=== PATIENT | female | born 1935 | race Caucasian/White ===

== ENCOUNTER → 2016-05-21 | Outpatient (CLI) | payer OTHER, MEDICARE ==
[~2016-05-21] MED LIST: CARB50TA3 PO; CHOL200010 PO; DONE10TA12 PO; GLIP5TAB3 PO; INSDGIPEN SC; KFL500 PO; LAMO150T PO; OLAN1TAB13 PO; SERT-234 PO; SIMV40TA2 PO; TRIH2TAB2 PO
[2016-05-21 12:33] LABS: URINE APPEARANCE TURBID (CLEAR); URINE BILIRUBIN NEG (NEG); URINE COLOR YELLOW; URINE EPITHELIAL CELL AUTO 20-30 /lpf (0-5); URINE NITRITE NEG (NEG); URINE PH 7.5 (4.5-7.5); URINE SPECIFIC GRAVITY 1.007 (1.000-1.030); UROBILINOGEN NEG (NEG)
[2016-05-21 12:55] LABS: MANUAL MICROSCOPIC REQUIRED? NO; REVIEW REQ? NO
== END | disposition home or self-care (01) ==
LOC: C.LABBFT 10:26
PROVIDERS: ATTEND Internal Medicine
DX: R39.9 Unspecified symptoms and signs involving the genitourinary system (principal)

== ENCOUNTER → 2016-09-09 | Outpatient (CLI) | payer OTHER, MEDICARE ==
[~2016-09-09] MED LIST changes: -LAMO150T PO; +LAMO150T32 PO
[2016-09-09 12:10] LABS: BASO % 0.2 %; BASO ABS # 0.01 K/uL (0-0.2); COMPLETE YES; EOS % 1.8 %; HEMATOCRIT 37.9 % (37-47); IG% 0.5 %; LYMPH % 23.1 %; LYMPH ABS # 1.31 K/uL (1.2-3.4); MEAN CELL VOLUME 92.9 fL (80-100); MEAN CORPUSCULAR HEMOGLOBIN 31.9 pg (25-34); MEAN CORPUSCULAR HGB CONC 34.3 g/dl (32-36); MEAN PLATELET VOLUME 8.6 fL (7.4-10.4); MONO % 6.5 %; NEUT % 67.9 %; PLATELET COUNT 122 K/uL (130-400); RED BLOOD COUNT 4.08 M/uL (4.2-5.4); WHITE BLOOD COUNT 5.66 K/uL (4.8-10.8)
[2016-09-09 12:47] LABS: ESTIMATED AVERAGE GLUCOSE 151 mg/dl; HA1C FLAG Normal (Normal)
[2016-09-09 12:51] LABS: BLOOD UREA NITROGEN 29 mg/dl (7-18); BUN/CREATININE RATIO 18.2 (10-20); CALCIUM 9.9 mg/dl (8.5-10.1); CARBON DIOXIDE 22 mmol/L (21-32); CHLORIDE 110 mmol/L (98-107); GLUCOSE 146 mg/dl (70-99); POTASSIUM 4.2 mmol/L (3.5-5.1); SODIUM 142 mmol/L (136-145)
[2016-09-09 12:52] LABS: PHOSPHORUS 3.4 mg/dl (2.5-4.9)
== END | disposition home or self-care (01) ==
LOC: C.LABBFT 08:15
PROVIDERS: ATTEND Internal Medicine
DX: E11.65 Type 2 diabetes mellitus with hyperglycemia (principal); E11.22 Type 2 diabetes mellitus with diabetic chronic kidney disease; N18.3 Chronic kidney disease, stage 3 (moderate); D69.6 Thrombocytopenia, unspecified

== ENCOUNTER 2016-11-19 11:26 | Inpatient (IN) | payer OTHER, MEDICARE ==
[~2016-11-19] VITALS: Ht 167.6 cm; Wt 74.1 kg
[2016-11-19] MEDS ORDERED: CARB50TA3 PO (12:09)
[2016-11-19] MEDS ORDERED: GLIP5TAB3 PO (12:09)
[2016-11-19] MEDS ORDERED: CHOL200010 PO (12:09)
[2016-11-19] MEDS ORDERED: TRIH2TAB2 PO (12:09)
[2016-11-19] MEDS ORDERED: SERT-234 PO (12:09)
[2016-11-19] MEDS ORDERED: LAMO150T32 PO (12:09)
[2016-11-19] MEDS ORDERED: DONE10TA12 PO (12:09)
[2016-11-19] MEDS ORDERED: OLAN1TAB13 PO (12:09)
[2016-11-19] MEDS ORDERED: INSDGIPEN SC (12:09)
[2016-11-19] MEDS ORDERED: SIMV40TA2 PO (12:09)
[2016-11-19 12:24] LABS: HEMATOCRIT 35.1 % (37-47); MEAN CELL VOLUME 91.2 fL (80-100); MEAN CORPUSCULAR HEMOGLOBIN 30.6 pg (25-34); MEAN CORPUSCULAR HGB CONC 33.6 g/dl (32-36); RED BLOOD COUNT 3.85 M/uL (4.2-5.4); WHITE BLOOD COUNT 7.57 K/uL (4.8-10.8)
--- NOTE | 2016-11-19 12:36 | DIAGNOSTIC IMAGING REPORT ---
SINGLE VIEW CHEST CLINICAL HISTORY: Hyperglycemia. FINDINGS: An AP, portable, upright chest radiograph is obtained. No prior studies are available for comparison at the time of dictation. The examination is degraded by portable technique and apical lordotic positioning. The cardiomediastinal silhouette is unremarkable. There is atherosclerotic calcification of the thoracic aorta. Nonspecific interstitial thickening is noted. There is no airspace consolidation or large pleural effusion. No pneumothorax is seen. The skeletal structures are osteopenic. The bony thorax is grossly intact. Degenerative change is seen throughout the thoracic spine. IMPRESSION: No acute cardiopulmonary abnormality. Electronically signed by: Desmond Seals M.D. 11/19/2016 12:34 PM Dictated Date/Time: 11/19/2016 12:33 PM
[2016-11-19 12:44] LABS: BUN/CREATININE RATIO 20.9 (10-20); CALCIUM 9.4 mg/dl (8.5-10.1); POTASSIUM 4.6 mmol/L (3.5-5.1)
[2016-11-19 12:53] LABS: BASO % 0.1 %; BASO ABS # 0.01 K/uL (0-0.2); COMPLETE YES; EOS % 0.1 %; IG% 0.3 %; LYMPH % 3.7 %; LYMPH ABS # 0.28 K/uL (1.2-3.4); MEAN PLATELET VOLUME 7.9 fL (7.4-10.4); MONO % 1.7 %; NEUT % 94.1 %; PLATELET COUNT 88 K/uL (130-400); PLT ESTIMATE DECREASED
[2016-11-19 12:57] LABS: ALB/GLOB RATIO 1.2 (0.9-2); CREATININE 1.8 mg/dl (0.60-1.20)
[2016-11-19 12:57] LABS: URINE APPEARANCE CLOUDY (CLEAR); URINE BILIRUBIN NEG (NEG); URINE COLOR YELLOW; URINE EPITHELIAL CELL AUTO 0-5 /lpf (0-5); URINE NITRITE POS (NEG); URINE SPECIFIC GRAVITY 1.019 (1.000-1.030); UROBILINOGEN NEG (NEG); ZZURINE CULT IF INDIC CATH YES
[2016-11-19 12:58] LABS: BETA-HYDROXYBUTYRATE 1.47 mg/dL (0.2-2.81)
[2016-11-19 13:06] LABS: MANUAL MICROSCOPIC REQUIRED? NO; REVIEW REQ? NO
[2016-11-19] MEDS ORDERED: NovoLIN-R INSULIN PER UNIT CHARGE IV STA (13:10)
[2016-11-19] MEDS ORDERED: IMIPENEM/CILASTATIN IV 500 MG in DEXTROSE 5% 100ML 100 ML IV STA (13:10)
[2016-11-19] MEDS ORDERED: SODIUM CHLORIDE 0.9% 500ML 500 ML IV STA (13:10)
[2016-11-19] MEDS ORDERED: ACETAMINOPHEN 325 MG TAB PO STA (13:40)
[2016-11-19] MEDS ORDERED: ACETAMINOPHEN 325 MG TAB PO PRN (14:15)
[2016-11-19] MEDS ORDERED: GLUCOSE 10 TABS/TUBE PO PRN (14:15)
[2016-11-19] MEDS ORDERED: DEXTROSE 50% 50 ML SYR IV PRN (14:15)
[2016-11-19] MEDS ORDERED: ALUMINUM/MAGNESIUM/SIMETH (MAALOX MAX) 30 ML UDC PO PRN (14:15)
[2016-11-19] MEDS ORDERED: GLUCOSE 40% GEL 15 GM TUBE PO PRN (14:15)
[2016-11-19] MEDS ORDERED: POLYETHYLENE (MIRALAX) 17 GM PACK PO PRN (14:15)
[2016-11-19] MEDS ORDERED: MAGNESIUM HYDROXIDE SUSP 30 ML UDC PO PRN (14:15)
[2016-11-19] MEDS ORDERED: GLUCAGON FOR INJ 1 MG VIAL SQ PRN (14:15)
[2016-11-19] MEDS ORDERED: ONDANSETRON INJ 2 MG/ML 2 ML VIAL IV PRN (14:15)
[2016-11-19 14:34] VITALS: O2SAT 96; BMI 25.6
[2016-11-19] MEDS ORDERED: IBUPROFEN 200 MG TAB PO STA (14:43)
[2016-11-19] MEDS ORDERED: IBUPROFEN 200 MG TAB ONE (14:52)
--- NOTE | 2016-11-19 14:56 | History and Physical ---
History & Physical Date & Time of Service: Nov 19, 2016 at 14:26 Chief Complaint: Sugar 598 Primary Care Physician: Gordo Mckoy M.D. History of Present Illness Source: patient, family ( and daugther at bedside), clinic records, hospital records This is an 81 y/o female with a history of Parkinson's disease, DM II, CKD stage III, HTN, HLD, bipolar disorder, dementia, thrombocytopenia with splenomegaly and GERD who presented to the ED on 11/19 with hyperglycemia, shaking , confusion and weakness. Patient states that she woke up around 3:00 this morning feeling very shaky. She states that she is usually somewhat shaky from the Parkinson's disease but this was more severe than normal. Her checked her blood sugar which was elevated at 318. The patient also noted feeling weaker than normal and was not able to get out of bed and walk around like she normally does. Her and daughter state that she was more confused this morning than normal. Her blood sugar was rechecked again around 10:30 this morning and was elevated at 592. The patient then came to the ED for further evaluation. The patient complains of dizziness in addition to her shakiness. She also notes some shortness of breath. The patient states that she's had some burning with urination for the last few days. Her notes that she has been having increased weakness of the last 2 weeks, and that her sugars have been higher for the last month or so, typically reading in the low 200s. The patient denies sweats, changes in vision, chest pain, palpitations, claudication, cough, wheezing, nausea, vomiting, abdominal pain, hematuria, urinary retention, paralysis, numbness and tingling. Past Medical/Surgical History Medical Problems: (1) Diabetes mellitus type 2 Status: Chronic (2) Parkinson disease Status: Chronic CKD stage III HTN HLD Bipolar disorder Dementia Thrombocytopenia w/splenomegaly GERD Family History Heart disease Hypertension Myocardial infarction Social History Smoking Status: Never Smoker Smokeless Tobacco Use: No Alcohol Use: none Drug Use: none Marital Status: Housing status: lives with significant other Occupational Status: retired Immunizations History of Influenza Vaccine: Yes Influenza Vaccine Date: Apr 02, 2005 History of Tetanus Vaccine?: PT STATES LAST TETANUS OVER 10 YRS AGO History of Pneumococcal: No History of Hepatitis B Vaccine: No Multi-Drug Resistant Organisms History of MDRO: No Allergies Coded Allergies: No Known Allergies (Verified , 11/19/16) Home Medications Scheduled Carbidopa/Levodopa (Sinemet Cr 50MG/200MG), 1 TAB PO TIDM Cephalexin Monohydrate (Cephalexin), 500 MG PO BID Cholecalciferol (Vitamin D), 2,000 UNITS PO DAILY Donepezil Hydrochloride (Aricept), 10 MG PO DAILY Glipizide (Glucotrol), 2.5 MG PO BID Insulin Glargine (Lantus Solostar), 0 SC UD Lamotrigine (Lamictal), 300 MG PO DAILY Olanzapine (Zyprexa), 1 TAB PO HS Sertraline (Zoloft), 150 MG PO HS Simvastatin (Zocor), 40 MG PO QPM Trihexyphenidyl Hcl (Artane), 2 MG PO TIDM Review of Systems Constitutional: + fever, + chills, + weakness, + fatigue, No sweats Eyes: No worsening of vision, No eye pain, No diplopia ENT: No hearing loss, No sore throat, No trouble swallowing Respiratory: + shortness of breath, No cough, No wheezing Cardiovascular: No chest pain, No claudication, No palpitations Abdomen: No pain, No nausea, No vomiting Musculoskeletal: No joint pain, No muscle pain, No calf pain Genitourinary - Female: + dysuria, No urinary retention, No hematuria Neurologic: + problem reported (dizziness, confusion), No paralysis, No weakness, No numbness/tingling Integumentary: No rash, No itch, No color change Physical Exam Vital Signs Date Time Temp Pulse Resp B/P (MAP) Pulse Ox O2 Delivery O2 Flow Rate FiO2 11/19/16 13:28 37.6 88 24 119/71 96 Room Air 11/19/16 12:43 87 20 142/89 95 Room Air 11/19/16 12:05 96 Room Air 11/19/16 12:05 77 11/19/16 11:37 38.0 83 18 107/61 92 Room Air General appearance: Well-developed, well-nourished, no apparent distress Head: Normocephalic, atraumatic Eyes: Normal inspection, PERRL, EOMI ENT: Normal ENT inspection, hearing grossly normal, pharynx normal Neck: Supple, no JVD, trachea midline Respiratory/Chest: Lungs clear to auscultation, normal breath sounds, no respiratory distress Cardiovascular: Regular rate & rhythm, no gallop, no murmur Abdomen/GI: +Suprapubic area TTP. Normal bowel sounds, soft Extremities/Musculoskeletal: Normal inspection, no calf tenderness, no pedal edema Neurological/Psych: Alert, normal mood/affect, oriented x 3 Skin: Normal color, warm/dry, no rash Diagnostics Laboratory Results Results Past 24 Hours Test 11/19/16 12:09 11/19/16 12:40 11/19/16 13:48 11/19/16 14:02 Range/Units White Blood Count 7.57 4.8-10.8 K/uL Red Blood Count 3.85 4.2-5.4 M/uL Hemoglobin 11.8 12.0-16.0 g/dL Hematocrit 35.1 37-47 % Mean Corpuscular Volume 91.2 80-100 fL Mean Corpuscular Hemoglobin 30.6 25-34 pg Mean Corpuscular Hemoglobin Concent 33.6 32-36 g/dl Platelet Count 88 130-400 K/uL Mean Platelet Volume 7.9 7.4-10.4 fL Neutrophils (%) (Auto) 94.1 % Lymphocytes (%) (Auto) 3.7 % Monocytes (%) (Auto) 1.7 % Eosinophils (%) (Auto) 0.1 % Basophils (%) (Auto) 0.1 % Neutrophils # (Auto) 7.12 1.4-6.5 K/uL Lymphocytes # (Auto) 0.28 1.2-3.4 K/uL Monocytes # (Auto) 0.13 0.11-0.59 K/uL Eosinophils # (Auto) 0.01 0-0.5 K/uL Basophils # (Auto) 0.01 0-0.2 K/uL RDW Standard Deviation 47.8 36.4-46.3 fL RDW Coefficient of Variation 14.4 11.5-14.5 % Immature Granulocyte % (Auto) 0.3 % Immature Granulocyte # (Auto) 0.02 0.00-0.02 K/uL Platelet Estimate DECREASED Sodium Level 134 136-145 mmol/L Potassium Level 4.6 3.5-5.1 mmol/L Chloride Level 104 98-107 mmol/L Carbon Dioxide Level 23 21-32 mmol/L Anion Gap 7.0 3-11 mmol/L Blood Urea Nitrogen 38 7-18 mg/dl Creatinine 1.80 0.60-1.20 mg/dl Est Creatinine Clear Calc Drug Dose 24.1 ml/min Estimated GFR () 29.6 Estimated GFR (Non- 25.6 BUN/Creatinine Ratio 20.9 10-20 Random Glucose 415 70-99 mg/dl Calcium Level 9.4 8.5-10.1 mg/dl Total Bilirubin 0.8 0.2-1 mg/dl Aspartate Amino Transf (AST/SGOT) 26 15-37 U/L Alanine Aminotransferase (ALT/SGPT) 41 12-78 U/L Alkaline Phosphatase 56 45-117 U/L Total Protein 7.0 6.4-8.2 gm/dl Albumin 3.8 3.4-5.0 gm/dl Globulin 3.2 2.5-4.0 gm/dl Albumin/Globulin Ratio 1.2 0.9-2 Beta-Hydroxybutyric Acid 1.47 0.2-2.81 mg/dL Urine Color YELLOW Urine Appearance CLOUDY CLEAR Urine pH 5.0 4.5-7.5 Urine Specific [place] 1.019 1.000-1.030 Urine Protein 1+ NEG Urine Glucose (UA) 3+ NEG Urine Ketones NEG NEG Urine Occult Blood 2+ NEG Urine Nitrite POS NEG Urine Bilirubin NEG NEG Urine Urobilinogen NEG NEG Urine Leukocyte Esterase MODERATE NEG Urine WBC (Auto) >30 0-5 /hpf Urine RBC (Auto) 0-4 0-4 /hpf Urine Hyaline Casts (Auto) 1-5 0-5 /lpf Urine Epithelial Cells (Auto) 0-5 0-5 /lpf Urine Bacteria (Auto) 4+ NEG Bedside Lactic Acid Venous 3.31 0.90-1.70 mmol/L Bedside Glucose 287 70-90 mg/dl Microbiology Results 11/19/16 Blood Culture, Received Pending 11/19/16 Blood Culture, Received Pending 11/19/16 Urine Culture, Received Pending Diagnostic Radiology Reviewed the following studies and agree with interpretation as follows: Patient Name: EDITH CRISTINA Unit Number: [id number] Dictated: 11/19/16 1233 Transcribed: 11/19/16 1233 EV Printed Date/Time: [~ rep prt dt]/[~ rep prt tm] [~ rep ct labl] - [~ rep ct ivnm] [facility] [place] [address] Dictated: 11/19/16 1233 Transcribed: 11/19/16 1233 EV Printed Date/Time: [~ rep prt dt]/[~ rep prt tm] [~ rep ct labl] - [~ rep ct ivnm] Patient: EDITH CRISTINA Address1: [address] Rec: [id number] Address2: Acct ID: [id number] [facility] Zip: [place] [address] Date: 1935 Sex: F Room/Bed: Ref Phy: Gordo Mckoy M.D. SC: ROYA Att Phy: Report #: [id number] Calista Phy: Gordo Mckoy M.D. Test: CXR1P Admit Phy: Insole Tack Puller Hand: GORAN Interpreting Phy: Desmond Seals M.D. Diagnosis: SUGAR 598 Ordering Phy: ED, PROTOCOL Service Date: 11/19/16 Admit Date: 11/19/16 MNE: [id number] CONF: DICTATED BY: Desmond Seals M.D.]] CC: ED,PROTOCOL Gordo Mckoy M.D. No Doctor, Assigned Endcc: [~ rep ct add3]] SINGLE VIEW CHEST CLINICAL HISTORY: Hyperglycemia. FINDINGS: An AP, portable, upright chest radiograph is obtained. No prior studies are available for comparison at the time of dictation. The examination is degraded by portable technique and apical lordotic positioning. The cardiomediastinal silhouette is unremarkable. There is atherosclerotic calcification of the thoracic aorta. Nonspecific interstitial thickening is noted. There is no airspace consolidation or large pleural effusion. No pneumothorax is seen. The skeletal structures are osteopenic. The bony thorax is grossly intact. Degenerative change is seen throughout the thoracic spine. IMPRESSION: No acute cardiopulmonary abnormality. Electronically signed by: Desmond Seals M.D. 11/19/2016 12:34 PM Dictated Date/Time: 11/19/2016 12:33 PM The status of this report is Signed. Draft = Not yet reviewed or approved by Radiologist. Signed = Reviewed and approved by Radiologist. <AttendingPhy></AttendingPhy> <FamilyPhy>Gordo Mckoy M.D.</FamilyPhy > <PrimaryPhy>Gordo Mckoy M.D.</PrimaryPhy> <UnitNumber>[id number]</ UnitNumber> <VisitNumber>[id number]</VisitNumber> <PatientName>EDITH CRISTINA</PatientName> <DateOfBirth>1935</DateOfBirth> <Location>[facility]ED[facility]</ Location> <ServiceDate>11/19/16</ServiceDate> <MNE>ESINDI</MNE> <OrderingPhy>ED , PROTOCOL</OrderingPhy> <OrderingPhyMNE>f rep ord dr wren</OrderingPhyMNE> < DictatingPhyMNE>f rep dict dr wren</DictatingPhyMNE> <CCListMNE>f rep ct mne</ CCListMNE> <AdmittingPhyMNE>f pt admit dr wren</AdmittingPhyMNE> <AttendingPhyMNE >f pt attend dr wren</AttendingPhyMNE> <ConsultingPhyMNE>f pt consult dr wren</ConsultingPhyMNE> <FamilyPhyMNE>f pt fam dr wren</FamilyPhyMNE> <OtherPhyMNE>f pt other dr wren</OtherPhyMNE> < PrimaryPhyMNE>f pt prim care dr wren</PrimaryPhyMNE> <ReferringPhyMNE>f pt referring dr wren</ReferringPhyMNE> EKG Reviewed EKG and agree with interpretation as follows: 80 bpm, NSR Impression Assessment and Plan 81 y/o female with a history of Parkinson's disease, DM II, CKD stage III, HTN, HLD, bipolar disorder, dementia, thrombocytopenia with splenomegaly and GERD who presented to the ED on 11/19 with hyperglycemia, shaking, confusion and weakness. Patient febrile on arrival with temperature of 38C, vital signs otherwise stable. No leukocytosis. Random glucose 415. Beta hydroxybutyric acid within normal limits. Creatinine elevated above baseline at 1.8. Urinalysis positive for infection. [id number] lactic acid 3.31. Patient given a 500 mL fluid bolus, 6 units regular insulin, Tylenol and Primaxin in the ED. Sepsis secondary to UTI -Admit to telemetry -Urine and blood cultures pending -Rocephin 1 gm IV qd -Repeat lactic acid at 1600 -IVF with NSS at 125 cc/hr -Tylenol 600 mg PO q4h prn fever Hyperglycemia, DM II--last hemoglobin A1c checked 09/09/16 was 6.9 -Glucose 415 on arrival, given 6 units regular insulin. Repeat glucose down to 287 -Hold glipizide -Lantus 42 units SC qpm -Insulin sliding scale -Check BSGs q ac and qhs JALEN on CKD stage III--Baseline creatinine 1.6 -Creatinine 1.8 on arrival -IVF as above, continue to monitor Parkinson's disease -Continue Sinemet 50/200 mg PO TIDM and trihexyphenidyl 2 mg PO TID HTN--stable HLD -Continue simvastatin 40 mg PO qhs Bipolar disorder -Continue Lamictal 300 mg PO qd, Zyprexa 10 mg PO qhs, Zoloft 150 mg PO qd Dementia -Continue Aricept 10 mg PO qd Thrombocytopenia--documented splenomegaly by ultrasound in outpt records. Pt does not wish for further evaluation -Continue to monitor DVT prophylaxis -Heparin 5000 units SC q8h -NY Anderson Code Status -Level V, DO NOT RESUSCITATE This chart was completed in part utilizing [employer] Speech Voice Recognition software. Attempts were made to minimize the grammatical errors, random word insertions, pronoun errors and incomplete sentences. Any formal questions or concerns about the content, text or information contained within the body of this dictation should be directly addressed to the provider for clarification. Level of Care Telemetry Resuscitation Status DO NOT RESUSCITATE VTE Prophylaxis VTE Risk Assessment Done? Y/N: Yes Risk Level: Moderate Given or contraindicated: Unfractionated heparin SQ, T.E.D. FARIHA Barron's Assessment and Plan Attending Addendum: I have physically seen and examined this patient, have directed the physician assistants medical extremities, and agree with the H&P as noted above with the following exceptions: NONE The patient is awake, well-developed and adequately nourished, alert and oriented 1, normocephalic and atraumatic, lying in bed and in no acute distress. HEENT--PERRL, EOMI, mucous membranes and oropharynx dry. Neck--supple, no JVD or bruits, thyroid normal, trachea midline, no adenopathy. Heart--normal S1 and S2, no extra beats, no murmurs, rubs or gallops. Lungs--clear bilaterally but diminished throughout, no respiratory distress, no accessory muscle use. Abdomen--normal bowel sounds and soft, nontender and nondistended, no hernias or masses, no organomegaly. Extremities--no cyanosis, clubbing or edema. There are good distal pulses b/l. Dermatologic--normal skin turgor, normal color, warm and dry, no abnormal lymph nodes, no rash. Neurologic--cranial nerves II through XII grossly intact. Rheumatologic--normal range of motion. Psychiatric--flat affect. Assessment and Plan: 1. UTI/SIRS--patient will be admitted to monitored bed. Follow urine and blood cultures. Ceftriaxone 1 g IV daily. Normal saline 125 ML's per hour, with serial BMP and magnesium levels. Baseline creatinine 1.6 with entrance laterally 1.8.
[2016-11-19] MEDS ORDERED: INSULIN ASPART 100 UNITS/ML 3 ML PEN SC SCH (16:00)
--- NOTE | 2016-11-19 16:19 | EMERGENCY ROOM VISIT NOTE ---
History Report prepared by Jesus: Rah Pearson Under the Supervision of: Dr. Shaheed Esposito M.D. First contact with patient: 13:01 Chief Complaint: HYPERGLYCEMIA Stated Complaint: SUGAR 598 Nursing Triage Summary: 0300 raul confused unable to get out of bed checked bs 318 and then checked thia am 1030 BS 592 History of Present Illness The patient is an 81 year old female with a history of Parkinson's who presents to the Emergency Room with complaints of persistent hyperglycemia that started this morning upon waking. The patient has been shaking this morning and having chills. Per the patient's family, the patient's arms do shake from the Parkinson 's, but the patient's current full-body shaking is not normal, and is probably from the fever and chills. The patient was also noted to be confused and weak this morning and unable to get out of bed or walk. Her blood sugars were over 500 this morning. She adds that she has had burning urination. The patient says that she has intermittent headaches, but denies any current headaches. The patient denies any pain, specifically any chest pain or abdominal pain. She also denies any vomiting, diarrhea, cough, melena, or hematochezia. Per the patient's , the patient had a UTI over a year ago and was treated with Bactrim. Source of History: patient, family Onset: This morning upon waking Position: other (global - hyperglycemia) Timing: other (persistent) Associated Symptoms: + fevers, + chills, + urinary symptoms (burning), + weakness, No headache, No cough, No chest pain, No vomiting, No abdominal pain, No melena, No hematochezia, No diarrhea Note: Associated symptoms: Could not get out of bed this morning, was confused. Full body shaking. Review of Systems See HPI for pertinent positives & negatives. A total of 10 systems reviewed and were otherwise negative. Past Medical & Surgical Medical Problems: (1) Diabetes (2) Hyperglycemia (3) Parkinson disease (4) Urinary tract infection Family History No pertinent family history Social History Smoking Status: Never Smoker Alcohol Use: none Housing Status: lives with family Occupation Status: retired Current/Historical Medications Scheduled Carbidopa/Levodopa (Sinemet Cr 50MG/200MG), 1 TAB PO TIDM Cholecalciferol (Vitamin D), 2,000 UNITS PO DAILY Donepezil Hydrochloride (Aricept), 10 MG PO DAILY Glipizide (Glucotrol), 2.5 MG PO BID Insulin Glargine (Lantus Solostar), 0 SC UD Lamotrigine (Lamictal), 300 MG PO DAILY Olanzapine (Zyprexa), 1 TAB PO HS Sertraline (Zoloft), 150 MG PO HS Simvastatin (Zocor), 40 MG PO QPM Trihexyphenidyl Hcl (Artane), 2 MG PO TIDM Allergies Coded Allergies: No Known Allergies (Verified , 11/19/16) Physical Exam Vital Signs Date Time Temp Pulse Resp B/P (MAP) Pulse Ox O2 Delivery O2 Flow Rate FiO2 11/19/16 16:05 78 18 112/67 94 11/19/16 14:40 38.3 80 20 135/65 94 Room Air 11/19/16 14:34 96 Room Air 11/19/16 13:28 37.6 88 24 119/71 96 Room Air 11/19/16 12:43 87 20 142/89 95 Room Air 11/19/16 12:05 96 Room Air 11/19/16 12:05 77 11/19/16 11:37 38.0 83 18 107/61 92 Room Air Physical Exam Constitutional: Vital signs reviewed. Chills. Eyes: Pupils are equal round reactive to light. Conjunctiva are noninjected. ENT: Pharynx is clear without erythema or exudate. Mucous membranes are moist. Neck supple without meningeal signs. Respiratory: Clear to auscultation bilaterally. Breath sounds are equal bilaterally. Cardiovascular: Regular rate and rhythm. No rubs or gallops. GI: Soft, nondistended and nontender. Bowel sounds are present. Musculoskeletal: No peripheral edema. No lower extremity tenderness. Integumentary: No cyanosis. Neurological: The patient is awake and alert. Resting tremor. Psychiatric: Normal affect. Medical Decision & Procedures ER Provider Diagnostic Interpretation: X-ray results as stated below per interpretation by me and the radiologist: SINGLE VIEW CHEST CLINICAL HISTORY: Hyperglycemia. FINDINGS: An AP, portable, upright chest radiograph is obtained. No prior studies are available for comparison at the time of dictation. The examination is degraded by portable technique and apical lordotic positioning. The cardiomediastinal silhouette is unremarkable. There is atherosclerotic calcification of the thoracic aorta. Nonspecific interstitial thickening is noted. There is no airspace consolidation or large pleural effusion. No pneumothorax is seen. The skeletal structures are osteopenic. The bony thorax is grossly intact. Degenerative change is seen throughout the thoracic spine. IMPRESSION: No acute cardiopulmonary abnormality. Electronically signed by: Desmond Seals M.D. 11/19/2016 12:34 PM Dictated Date/Time: 11/19/2016 12:33 PM Laboratory Results 11/19/16 12:09 Red Blood Count 3.85, Mean Corpuscular Volume 91.2, Mean Corpuscular Hemoglobin 30.6, Mean Corpuscular Hemoglobin Concent 33.6, Mean Platelet Volume 7.9, Neutrophils (%) (Auto) 94.1, Lymphocytes (%) (Auto) 3.7, Monocytes (%) (Auto) 1.7, Eosinophils (%) (Auto) 0.1, Basophils (%) (Auto) 0.1, Neutrophils # (Auto) 7.12, Lymphocytes # (Auto) 0.28, Monocytes # (Auto) 0.13, Eosinophils # (Auto) 0.01, Basophils # (Auto) 0.01 11/19/16 12:09 Test 11/19/16 12:09 11/19/16 12:40 11/19/16 13:48 11/19/16 14:02 White Blood Count 7.57 K/uL (4.8-10.8) Red Blood Count 3.85 M/uL (4.2-5.4) Hemoglobin 11.8 g/dL (12.0-16.0) Hematocrit 35.1 % (37-47) Mean Corpuscular Volume 91.2 fL (80-100) Mean Corpuscular Hemoglobin 30.6 pg (25-34) Mean Corpuscular Hemoglobin Concent 33.6 g/dl (32-36) Platelet Count 88 K/uL (130-400) Mean Platelet Volume 7.9 fL (7.4-10.4) Neutrophils (%) (Auto) 94.1 % Lymphocytes (%) (Auto) 3.7 % Monocytes (%) (Auto) 1.7 % Eosinophils (%) (Auto) 0.1 % Basophils (%) (Auto) 0.1 % Neutrophils # (Auto) 7.12 K/uL (1.4-6.5) Lymphocytes # (Auto) 0.28 K/uL (1.2-3.4) Monocytes # (Auto) 0.13 K/uL (0.11-0.59) Eosinophils # (Auto) 0.01 K/uL (0-0.5) Basophils # (Auto) 0.01 K/uL (0-0.2) RDW Standard Deviation 47.8 fL (36.4-46.3) RDW Coefficient of Variation 14.4 % (11.5-14.5) Immature Granulocyte % (Auto) 0.3 % Immature Granulocyte # (Auto) 0.02 K/uL (0.00-0.02) Platelet Estimate DECREASED Anion Gap 7.0 mmol/L (3-11) Est Creatinine Clear Calc Drug Dose 24.1 ml/min Estimated GFR () 29.6 Estimated GFR (Non- 25.6 BUN/Creatinine Ratio 20.9 (10-20) Calcium Level 9.4 mg/dl (8.5-10.1) Total Bilirubin 0.8 mg/dl (0.2-1) Aspartate Amino Transf (AST/SGOT) 26 U/L (15-37) Alanine Aminotransferase (ALT/SGPT) 41 U/L (12-78) Alkaline Phosphatase 56 U/L (45-117) Total Protein 7.0 gm/dl (6.4-8.2) Albumin 3.8 gm/dl (3.4-5.0) Globulin 3.2 gm/dl (2.5-4.0) Albumin/Globulin Ratio 1.2 (0.9-2) Beta-Hydroxybutyric Acid 1.47 mg/dL (0.2-2.81) Urine Color YELLOW Urine Appearance CLOUDY (CLEAR) Urine pH 5.0 (4.5-7.5) Urine Specific [place] 1.019 (1.000-1.030) Urine Protein 1+ (NEG) Urine Glucose (UA) 3+ (NEG) Urine Ketones NEG (NEG) Urine Occult Blood 2+ (NEG) Urine Nitrite POS (NEG) Urine Bilirubin NEG (NEG) Urine Urobilinogen NEG (NEG) Urine Leukocyte Esterase MODERATE (NEG) Urine WBC (Auto) >30 /hpf (0-5) Urine RBC (Auto) 0-4 /hpf (0-4) Urine Hyaline Casts (Auto) 1-5 /lpf (0-5) Urine Epithelial Cells (Auto) 0-5 /lpf (0-5) Urine Bacteria (Auto) 4+ (NEG) Bedside Lactic Acid Venous 3.31 mmol/L (0.90-1.70) Bedside Glucose 287 mg/dl (70-90) Test 11/19/16 16:06 Laboratory results as reviewed by me. Medications Administered Medications (Trade) Dose Ordered Sig/Mary Kay Route Start Time Stop Time Status Last Admin Dose Admin Sodium Chloride 500 ml @ 999 mls/hr Q31M STAT IV 11/19/16 13:10 11/19/16 13:40 DC 11/19/16 13:10 999 MLS/HR Insulin Human Regular (novoLIN-R U-100 PER UNIT) 6 units NOW STAT IV 11/19/16 13:10 11/19/16 13:12 DC 11/19/16 13:10 6 UNITS Imipenem/ Cilastatin Sodium 500 mg/Dextrose 110 ml @ 100 mls/hr NOW STAT IV 11/19/16 13:10 11/19/16 14:15 DC 11/19/16 13:56 100 MLS/HR Acetaminophen (Tylenol Tab) 650 mg NOW STAT PO 11/19/16 13:40 11/19/16 13:41 DC 11/19/16 13:55 650 MG Ibuprofen (Advil Tab) 400 mg STK-MED ONCE .ROUTE 11/19/16 14:52 11/19/16 14:53 DC 11/19/16 14:55 400 MG ECG Indication: weakness Rate (beats per minute): 80 Rhythm: normal sinus Findings: no acute ischemic change, no ectopy, other (motion artifact) ED Course 1304: The patient was evaluated in room B7. A complete history and physical exam was performed. The patient verbally expressed understanding and agreement of the treatment plan. The patient will be evaluated for further treatment. 1310: Ordered Imipenem/Cilastatin Sodium 500 mg/Dextrose 110 ml @ 100 mls/hr IV , Novolin-R U-100 PER UNIT 6 units IV, NSS 500 ml @ 999 mls/hr IV. 1321: We paged Dr. Bernal ([facility] hospitalist). 1340: Ordered Tylenol Tab 650 mg PO. 1341: I discussed the patient with Aida ([place] for Dr. Bernal - [facility] hospitalist) - they will evaluate the patient for further treatment. Medical Decision This is an 81-year-old female presents with hyperglycemia and fever. Differential diagnosis includes sepsis, SIRS, UTI, pneumonia, ketoacidosis. I did perform a limited focused review of portions of the patient's old chart on the electronic medical record. The patient has had no recent pertinent visits to this hospital. Blood Pressure Screening: Patient was found to have a slightly elevated blood pressure due to circumstances. I do not believe that the patient requires hypertension monitoring. Medication Reconciliation: I attest that I have personally reviewed the patient' s current medication list. I did evaluate the patient as noted above. IV access was established. The patient was placed on a continuous validation manager. The patient was given normal saline IV. She was also treated with Tylenol for fever. I did order and personally review the patient's 12-lead EKG and chest x-ray as described above. I did order and review the patient's blood work as noted in the electronic medical record. She is anemic. Creatinine is elevated. Lactic acid is elevated. I did order a urinalysis. Urine culture was sent. Blood cultures were obtained and the patient was treated with Primaxin IV. I did discuss the case with the hospitalist and pillowcase cutter. Consults Time Called: 1321 Consulting Physician: Aida (MARYAN for Dr. Gabe TODD hospitalist) Returned Call: 1341 (in person) I discussed the patient with Aida (MARYAN for Dr. Gabe TODD hospitalist ) - they will evaluate the patient for further treatment. Impression Primary Impression: Sepsis Additional Impressions: UTI (urinary tract infection) Chronic kidney disease Hyperglycemia Thrombocytopenia Anemia, unspecified Scribe Attestation The scribe's documentation has been prepared under my direct and personally reviewed by me in its entirety. I confirm that the note above accurately reflects all work, treatment, procedures, and medical decision making performed by me. Departure Information Dispostion Being Evaluated By Hospitalist Gordo Gamez M.D. (PCP) Patient Instructions My [facility] Problem Qualifiers Primary Impression: Sepsis Sepsis type: sepsis due to unspecified organism Qualified Codes: A41.9 - Sepsis, unspecified organism Additional Impressions: UTI (urinary tract infection) Urinary tract infection type: site unspecified Hematuria presence: without hematuria Qualified Codes: N39.0 - Urinary tract infection, site not specified Chronic kidney disease Chronic kidney disease stage: unspecified stage Qualified Codes: N18.9 - Chronic kidney disease, unspecified
[2016-11-19] MEDS: SODIUM CHLORIDE 0.9% 1000ML 1,000 ML IV SCH (16:26)
[2016-11-19 16:41] VITALS: BP 105/58; PULSE 18; PULSE 77; TEMP 36.9; O2SAT 93
[2016-11-19 16:56] LABS: INR 1.1 (0.9-1.1); PROTHROMBIN TIME (PATIENT) 12.1 SECONDS (9.0-12.0)
[2016-11-19] MEDS: TRIHEXYPHENIDYL HCL 2 MG TAB PO SCH (17:27)
[2016-11-19] MEDS: CARBIDOPA/LEVODOPA 50/200MG EXT REL TAB PO SCH (17:27)
[2016-11-19] MEDS: INSULIN ASPART 100 UNITS/ML 3 ML PEN SC SCH ×2 (17:32→20:38)
[2016-11-19] MEDS: INSULIN GLARGINE SOLOSTAR 100 UNITS/ML 3 ML PEN SC SCH (18:22)
[2016-11-19] MEDS: CEFTRIAXONE SOD INJ 1 GM in DEXTROSE 5% ADD-VANTAGE 50ML 50 ML IV SCH (19:42)
[2016-11-19] MEDS: SERTRALINE HCL 100 MG TAB PO SCH (20:36)
[2016-11-19] MEDS: OLANZAPINE 10 MG TAB PO SCH (20:36)
[2016-11-19] MEDS: SIMVASTATIN 40 MG TAB PO SCH (20:37)
[2016-11-19] MEDS: HEPARIN SOD 5000 UNIT/0.5 ML CARP SQ SCH (20:39)
[2016-11-19 23:26] VITALS: BP 112/68; PULSE 68; TEMP 36.9; O2SAT 94
[2016-11-20] VITALS (7 sets, daily range): BP systolic 105–131; BP diastolic 59–74; PULSE 61–74; TEMP 36.4–37; O2SAT 91–97
[2016-11-20] MEDS: SODIUM CHLORIDE 0.9% 1000ML 1,000 ML IV SCH ×4 (00:37→23:52)
[2016-11-20] MEDS: HEPARIN SOD 5000 UNIT/0.5 ML CARP SQ SCH (06:14)
[2016-11-20] MEDS: CARBIDOPA/LEVODOPA 50/200MG EXT REL TAB PO SCH ×3 (08:09→16:54)
[2016-11-20] MEDS: TRIHEXYPHENIDYL HCL 2 MG TAB PO SCH ×3 (08:09→16:54)
[2016-11-20] MEDS: CHOLECALCIFEROL 1000 INTER.UNIT TAB PO SCH (08:09)
[2016-11-20] MEDS: DONEPEZIL HCL 10 MG TAB PO SCH (08:09)
[2016-11-20] MEDS: INSULIN ASPART 100 UNITS/ML 3 ML PEN SC SCH ×4 (08:11→21:50)
[2016-11-20 08:30] LABS: HEMATOCRIT 33.6 % (37-47); MEAN CELL VOLUME 90.3 fL (80-100); MEAN CORPUSCULAR HEMOGLOBIN 30.1 pg (25-34); MEAN CORPUSCULAR HGB CONC 33.3 g/dl (32-36); RED BLOOD COUNT 3.72 M/uL (4.2-5.4); WHITE BLOOD COUNT 6.55 K/uL (4.8-10.8)
[2016-11-20 08:54] LABS: BUN/CREATININE RATIO 18.5 (10-20); CALCIUM 8.6 mg/dl (8.5-10.1); CREATININE 1.9 mg/dl (0.60-1.20)
[2016-11-20 08:55] LABS: BASO % 0.2 %; BASO ABS # 0.01 K/uL (0-0.2); COMPLETE YES; EOS % 0.2 %; IG% 0.5 %; LYMPH % 9.9 %; LYMPH ABS # 0.65 K/uL (1.2-3.4); MEAN PLATELET VOLUME 8.2 fL (7.4-10.4); MONO % 8.4 %; NEUT % 80.8 %; PLATELET COUNT 69 K/uL (130-400)
--- NOTE | 2016-11-20 09:56 | Hospitalist Progress Note ---
Hospitalist Progress Note Date of Service Nov 20, 2016. Subjective Pt evaluation today including: conversation w/ patient, physical exam, chart review, lab review, review of studies, review of inpatient medication list Patient seen and evaluated. BCx positive x 2 and UA growing E. coli. Tele reviewed and she been sinus mostly in 70s with an episode in the 130s. Rhythm strip reviewed and presence of run SVT/atrial tach that lasted approx. 2 minutes and spontaneously resolved She reports feeling better since coming into the hospital. No further documented fevers at this time. Verbalizes no new complaints Constitutional: No fever, No chills Respiratory: No shortness of breath Cardiovascular: No chest pain Abdomen: No pain, No nausea, No vomiting, No diarrhea, No constipation Female : No dysuria Medications Current Inpatient Medications Medications (Trade) Dose Ordered Sig/Mary Kay Route Start Time Stop Time Status Last Admin Dose Admin Sodium Chloride 1,000 ml @ 125 mls/hr Q8H IV 11/19/16 16:30 12/19/16 16:29 11/20/16 08:58 125 MLS/HR Acetaminophen (Tylenol Tab) 650 mg Q4H PRN PO 11/19/16 14:15 12/19/16 14:14 Al Hydrox/Mg Hydrox/Simethicone (Maalox Max Susp) 15 ml Q4H PRN PO 11/19/16 14:15 12/19/16 14:14 Magnesium Hydroxide (Milk Of Magnesia Susp) 30 ml Q12H PRN PO 11/19/16 14:15 12/19/16 14:14 Ondansetron HCl (Zofran Inj) 4 mg Q6H PRN IV 11/19/16 14:15 12/19/16 14:14 Polyethylene (Miralax Powder Packet) 17 gm DAILY PRN PO 11/19/16 14:15 12/19/16 14:14 Insulin Glargine (Lantus Solostar Pen) 42 units QPM SC 11/19/16 18:00 12/19/16 17:59 11/19/16 18:22 42 UNITS Glucose (Glucose 40% Gel) 15-30 GRAMS 15 GRAMS... UD PRN PO 11/19/16 14:15 12/19/16 14:14 Glucose (Glucose Chew Tab) 4-8 Tablets 4 Tabl... UD PRN PO 11/19/16 14:15 12/19/16 14:14 Dextrose (Dextrose 50% 50ML Syringe) 25-50ML OF 50% DW IV FOR... UD PRN IV 11/19/16 14:15 12/19/16 14:14 Glucagon (Glucagon Inj) 1 mg UD PRN SQ 11/19/16 14:15 12/19/16 14:14 Ceftriaxone Sodium 1 gm/ Dextrose 50 ml @ 100 mls/hr Q24H IV 11/19/16 20:00 11/29/16 19:59 11/19/16 19:42 100 MLS/HR Carbidopa/Levodopa (Sinemet Cr 50/ 200MG Tab) 1 tab TIDM PO 11/19/16 17:00 12/19/16 17:59 11/20/16 08:09 1 TAB Donepezil HCl (Aricept Tab) 10 mg DAILY PO 11/20/16 09:00 12/20/16 08:59 11/20/16 08:09 10 MG Lamotrigine (Lamictal Tab) 300 mg DAILY PO 11/20/16 09:00 12/20/16 08:59 11/20/16 08:09 300 MG Olanzapine (Zyprexa Tab) 10 mg HS PO 11/19/16 21:00 12/19/16 20:59 11/19/16 20:36 10 MG Sertraline HCl (Zoloft Tab) 150 mg HS PO 11/19/16 21:00 12/19/16 20:59 11/19/16 20:36 150 MG Simvastatin (Zocor Tab) 40 mg QPM PO 11/19/16 21:00 12/19/16 20:59 11/19/16 20:37 40 MG Trihexyphenidyl HCl (Artane Tab) 2 mg TIDM PO 11/19/16 17:00 12/19/16 17:59 11/20/16 08:09 2 MG Cholecalciferol (Vitamin D Tab) 2,000 inter.unit QAM PO 11/20/16 09:00 12/20/16 08:59 11/20/16 08:09 2,000 INTER.UNIT Insulin Aspart (novoLOG ASPART) SLIDING SCALE If C... ACHS SC 11/19/16 16:30 12/19/16 16:29 11/20/16 08:11 3 UNITS Objective Vital Signs Date Time Temp Pulse Resp B/P (MAP) Pulse Ox O2 Delivery O2 Flow Rate FiO2 11/20/16 08:00 Room Air 11/20/16 07:23 36.9 71 16 118/74 (89) 91 Room Air 11/20/16 04:48 37.0 74 18 129/71 (90) 94 Room Air 11/20/16 04:00 Room Air 11/20/16 00:00 Room Air 11/19/16 23:26 36.9 68 18 112/68 (83) 94 Room Air 11/19/16 20:00 Room Air 11/19/16 16:41 36.9 77 18 105/58 (74) 93 Room Air 11/19/16 16:05 78 18 112/67 94 11/19/16 14:40 38.3 80 20 135/65 94 Room Air 11/19/16 14:34 96 Room Air 11/19/16 13:28 37.6 88 24 119/71 96 Room Air 11/19/16 12:43 87 20 142/89 95 Room Air 11/19/16 12:05 96 Room Air 11/19/16 12:05 77 11/19/16 11:37 38.0 83 18 107/61 92 Room Air Physical Exam General Appearance: WD/WN, no apparent distress Eyes: sclerae normal ENT: hearing grossly normal Neck: supple, no JVD, trachea midline Respiratory/Chest: lungs clear, normal breath sounds, no respiratory distress, no accessory muscle use Cardiovascular: regular rate, rhythm, no gallop, no murmur Abdomen: normal bowel sounds, non tender, soft Extremities: no pedal edema, no calf tenderness Neurologic/Psychiatric: alert, oriented x 3 Skin: normal color, warm/dry Laboratory Results Last 24 Hours Test 11/19/16 11:53 11/19/16 12:09 11/19/16 12:40 11/19/16 13:48 Bedside Glucose 468 mg/dl White Blood Count 7.57 K/uL Red Blood Count 3.85 M/uL Hemoglobin 11.8 g/dL Hematocrit 35.1 % Mean Corpuscular Volume 91.2 fL Mean Corpuscular Hemoglobin 30.6 pg Mean Corpuscular Hemoglobin Concent 33.6 g/dl Platelet Count 88 K/uL Mean Platelet Volume 7.9 fL Neutrophils (%) (Auto) 94.1 % Lymphocytes (%) (Auto) 3.7 % Monocytes (%) (Auto) 1.7 % Eosinophils (%) (Auto) 0.1 % Basophils (%) (Auto) 0.1 % Neutrophils # (Auto) 7.12 K/uL Lymphocytes # (Auto) 0.28 K/uL Monocytes # (Auto) 0.13 K/uL Eosinophils # (Auto) 0.01 K/uL Basophils # (Auto) 0.01 K/uL RDW Standard Deviation 47.8 fL RDW Coefficient of Variation 14.4 % Immature Granulocyte % (Auto) 0.3 % Immature Granulocyte # (Auto) 0.02 K/uL Platelet Estimate DECREASED Prothrombin Time 12.1 SECONDS Prothromb Time International Ratio 1.1 Sodium Level 134 mmol/L Potassium Level 4.6 mmol/L Chloride Level 104 mmol/L Carbon Dioxide Level 23 mmol/L Anion Gap 7.0 mmol/L Blood Urea Nitrogen 38 mg/dl Creatinine 1.80 mg/dl Est Creatinine Clear Calc Drug Dose 24.1 ml/min Estimated GFR () 29.6 Estimated GFR (Non- 25.6 BUN/Creatinine Ratio 20.9 Random Glucose 415 mg/dl Calcium Level 9.4 mg/dl Total Bilirubin 0.8 mg/dl Aspartate Amino Transf (AST/SGOT) 26 U/L Alanine Aminotransferase (ALT/SGPT) 41 U/L Alkaline Phosphatase 56 U/L Total Protein 7.0 gm/dl Albumin 3.8 gm/dl Globulin 3.2 gm/dl Albumin/Globulin Ratio 1.2 Beta-Hydroxybutyric Acid 1.47 mg/dL Urine Color YELLOW Urine Appearance CLOUDY Urine pH 5.0 Urine Specific [place] 1.019 Urine Protein 1+ Urine Glucose (UA) 3+ Urine Ketones NEG Urine Occult Blood 2+ Urine Nitrite POS Urine Bilirubin NEG Urine Urobilinogen NEG Urine Leukocyte Esterase MODERATE Urine WBC (Auto) >30 /hpf Urine RBC (Auto) 0-4 /hpf Urine Hyaline Casts (Auto) 1-5 /lpf Urine Epithelial Cells (Auto) 0-5 /lpf Urine Bacteria (Auto) 4+ Bedside Lactic Acid Venous 3.31 mmol/L Test 11/19/16 14:02 11/19/16 15:00 11/19/16 16:25 11/19/16 16:36 Bedside Glucose 287 mg/dl 276 mg/dl 245 mg/dl Lactic Acid Level 2.9 mmol/L Test 11/19/16 20:31 11/20/16 07:53 11/20/16 08:08 Bedside Glucose 330 mg/dl 267 mg/dl White Blood Count 6.55 K/uL Red Blood Count 3.72 M/uL Hemoglobin 11.2 g/dL Hematocrit 33.6 % Mean Corpuscular Volume 90.3 fL Mean Corpuscular Hemoglobin 30.1 pg Mean Corpuscular Hemoglobin Concent 33.3 g/dl Platelet Count 69 K/uL Mean Platelet Volume 8.2 fL Neutrophils (%) (Auto) 80.8 % Lymphocytes (%) (Auto) 9.9 % Monocytes (%) (Auto) 8.4 % Eosinophils (%) (Auto) 0.2 % Basophils (%) (Auto) 0.2 % Neutrophils # (Auto) 5.30 K/uL Lymphocytes # (Auto) 0.65 K/uL Monocytes # (Auto) 0.55 K/uL Eosinophils # (Auto) 0.01 K/uL Basophils # (Auto) 0.01 K/uL RDW Standard Deviation 47.4 fL RDW Coefficient of Variation 14.4 % Immature Granulocyte % (Auto) 0.5 % Immature Granulocyte # (Auto) 0.03 K/uL Sodium Level 140 mmol/L Potassium Level 4.0 mmol/L Chloride Level 110 mmol/L Carbon Dioxide Level 22 mmol/L Anion Gap 8.0 mmol/L Blood Urea Nitrogen 35 mg/dl Creatinine 1.90 mg/dl Est Creatinine Clear Calc Drug Dose 23.1 ml/min Estimated GFR () 27.8 Estimated GFR (Non- 24.0 BUN/Creatinine Ratio 18.5 Random Glucose 258 mg/dl Calcium Level 8.6 mg/dl Assessment and Plan 81 y/o female with a history of Parkinson's disease, DM II, CKD stage III, HTN, HLD, bipolar disorder, dementia, thrombocytopenia with splenomegaly and GERD who presented to the ED on 11/19 with hyperglycemia, shaking, confusion and weakness. Patient febrile on arrival with temperature of 38C, vital signs otherwise stable. No leukocytosis. Random glucose 415. Beta hydroxybutyric acid within normal limits. Creatinine elevated above baseline at 1.8. Urinalysis positive for infection. [id number] lactic acid 3.31. Patient given a 500 mL fluid bolus, 6 units regular insulin, Tylenol and Primaxin in the ED. Sepsis 2/2 E. Coli UTI and Bacteremia: - Rocephin 1 g IV daily and await sensitivities - NSS at 125 mL/hr - Will repeat BCx in AM T2DM with Hyperglycemia: A1c 6.9 - Hold glipizide - Lantus 42 units SC HS and SSI JALEN on CKD stage III: Baseline Cr 1.6 - Continue to hydrate and trend Cr as it slightly bumped today - if rises tomorrow may need to investigate for presence of obstructing cause Chronic Thrombocytopenia S/P Splenomegaly: - Continue to monitor DVT Prophylaxis: [place]/SCDs; Avoid chemical prophylaxis due to thrombocytopenia Code Status: DO NOT RESUSCITATE Disposition: From home and states helps her; no ambulatory devices - PT/OT evaluations Continued [facility] stay due to: multiple IV medications needed
[2016-11-20] MEDS: CEFTRIAXONE SOD INJ 1 GM in DEXTROSE 5% ADD-VANTAGE 50ML 50 ML IV SCH (19:54)
[2016-11-20] MEDS: SIMVASTATIN 40 MG TAB PO SCH (21:45)
[2016-11-20] MEDS: SERTRALINE HCL 100 MG TAB PO SCH (21:46)
[2016-11-20] MEDS: OLANZAPINE 10 MG TAB PO SCH (21:47)
[2016-11-20] MEDS: INSULIN GLARGINE SOLOSTAR 100 UNITS/ML 3 ML PEN SC SCH (21:50)
[2016-11-21 04:00] VITALS: BP 155/75; PULSE 66; TEMP 36.8; O2SAT 91
[2016-11-21] MEDS: DONEPEZIL HCL 10 MG TAB PO SCH (07:39)
[2016-11-21] MEDS: CARBIDOPA/LEVODOPA 50/200MG EXT REL TAB PO SCH ×3 (07:39→17:04)
[2016-11-21] MEDS: TRIHEXYPHENIDYL HCL 2 MG TAB PO SCH ×3 (07:40→17:04)
[2016-11-21] MEDS: CHOLECALCIFEROL 1000 INTER.UNIT TAB PO SCH (07:41)
[2016-11-21] MEDS: SODIUM CHLORIDE 0.9% 1000ML 1,000 ML IV SCH (07:49)
[2016-11-21 08:00] VITALS: O2SAT 94
[2016-11-21 08:13] VITALS: BP 177/76; PULSE 65; TEMP 36.4; O2SAT 94
[2016-11-21 08:48] LABS: HEMATOCRIT 32.8 % (37-47); MEAN CELL VOLUME 91.9 fL (80-100); MEAN CORPUSCULAR HEMOGLOBIN 31.4 pg (25-34); MEAN CORPUSCULAR HGB CONC 34.1 g/dl (32-36); RED BLOOD COUNT 3.57 M/uL (4.2-5.4)
[2016-11-21 08:50] LABS: MEAN PLATELET VOLUME 8.6 fL (7.4-10.4); PLATELET COUNT 80 K/uL (130-400)
[2016-11-21 09:11] LABS: BASO % 0.2 %; BASO ABS # 0.01 K/uL (0-0.2); COMPLETE YES; EOS % 1.1 %; IG% 0.3 %; LYMPH % 12.6 %; LYMPH ABS # 0.77 K/uL (1.2-3.4); MONO % 6.7 %; NEUT % 79.1 %
[2016-11-21 09:14] LABS: BUN/CREATININE RATIO 17.5 (10-20); CALCIUM 8.9 mg/dl (8.5-10.1); CREATININE 1.7 mg/dl (0.60-1.20); MAGNESIUM 2.3 mg/dl (1.8-2.4); POTASSIUM 4.3 mmol/L (3.5-5.1)
[2016-11-21] MEDS: INSULIN ASPART 100 UNITS/ML 3 ML PEN SC SCH ×4 (09:24→20:30)
[2016-11-21] MEDS: SODIUM CHLORIDE 0.45% 1000ML 1,000 ML IV SCH ×2 (10:38→19:56)
[2016-11-21 11:29] VITALS: BP 125/92; PULSE 63; TEMP 36.6; O2SAT 96
[2016-11-21 15:13] VITALS: BP 134/70; PULSE 58; TEMP 36.7; O2SAT 94
--- NOTE | 2016-11-21 15:13 | Hospitalist Progress Note ---
Hospitalist Progress Note Date of Service Nov 21, 2016. (Mely Anderson, PA-C) Subjective Pt evaluation today including: conversation w/ patient, conversation w/ family (), physical exam, chart review, lab review, review of studies, review of inpatient medication list Patient seen and evaluated. No acute events overnight. UCx with pansensitive E. Coli and will convert to po medication. Discussed with who states he cannot adequately take care of her at home and recommending [facility]. Patient had a bad experience at [facility] at would not want to go there. Patient does have dementia but she reports she plans on returning home and did not want [facility] as she states her takes care of everything. Patient is medically stable and she would be optimal for discharge to acute rehab when arrangements made. Constitutional: No fever, No chills Respiratory: No shortness of breath Cardiovascular: No chest pain Abdomen: No pain, No nausea, No vomiting, No diarrhea, No constipation Female : + urinary frequency (chronic), No dysuria (Mely Anderson, PA- C) Medications Current Inpatient Medications Medications (Trade) Dose Ordered Sig/Mary Kay Route Start Time Stop Time Status Last Admin Dose Admin Acetaminophen (Tylenol Tab) 650 mg Q4H PRN PO 11/19/16 14:15 12/19/16 14:14 Al Hydrox/Mg Hydrox/Simethicone (Maalox Max Susp) 15 ml Q4H PRN PO 11/19/16 14:15 12/19/16 14:14 Magnesium Hydroxide (Milk Of Magnesia Susp) 30 ml Q12H PRN PO 11/19/16 14:15 12/19/16 14:14 Ondansetron HCl (Zofran Inj) 4 mg Q6H PRN IV 11/19/16 14:15 12/19/16 14:14 Polyethylene (Miralax Powder Packet) 17 gm DAILY PRN PO 11/19/16 14:15 12/19/16 14:14 Insulin Glargine (Lantus Solostar Pen) 42 units QPM SC 11/19/16 18:00 12/19/16 17:59 11/20/16 21:50 42 UNITS Glucose (Glucose 40% Gel) 15-30 GRAMS 15 GRAMS... UD PRN PO 11/19/16 14:15 12/19/16 14:14 Glucose (Glucose Chew Tab) 4-8 Tablets 4 Tabl... UD PRN PO 11/19/16 14:15 12/19/16 14:14 Dextrose (Dextrose 50% 50ML Syringe) 25-50ML OF 50% DW IV FOR... UD PRN IV 11/19/16 14:15 12/19/16 14:14 Glucagon (Glucagon Inj) 1 mg UD PRN SQ 11/19/16 14:15 12/19/16 14:14 Carbidopa/Levodopa (Sinemet Cr 50/ 200MG Tab) 1 tab TIDM PO 11/19/16 17:00 12/19/16 17:59 11/21/16 12:12 1 TAB Donepezil HCl (Aricept Tab) 10 mg DAILY PO 11/20/16 09:00 12/20/16 08:59 11/21/16 07:39 10 MG Lamotrigine (Lamictal Tab) 300 mg DAILY PO 11/20/16 09:00 12/20/16 08:59 11/21/16 07:40 300 MG Olanzapine (Zyprexa Tab) 10 mg HS PO 11/19/16 21:00 12/19/16 20:59 11/20/16 21:47 10 MG Sertraline HCl (Zoloft Tab) 150 mg HS PO 11/19/16 21:00 12/19/16 20:59 11/20/16 21:46 150 MG Simvastatin (Zocor Tab) 40 mg QPM PO 11/19/16 21:00 12/19/16 20:59 11/20/16 21:45 40 MG Trihexyphenidyl HCl (Artane Tab) 2 mg TIDM PO 11/19/16 17:00 12/19/16 17:59 11/21/16 12:12 2 MG Cholecalciferol (Vitamin D Tab) 2,000 inter.unit QAM PO 11/20/16 09:00 12/20/16 08:59 11/21/16 07:41 2,000 INTER.UNIT Insulin Aspart (novoLOG ASPART) SLIDING SCALE If C... ACHS SC 11/19/16 16:30 12/19/16 16:29 11/21/16 13:15 7 UNITS Sodium Chloride 1,000 ml @ 100 mls/hr Q10H IV 11/21/16 11:00 12/21/16 10:59 11/21/16 10:38 100 MLS/HR Cephalexin Monohydrate (Keflex Cap) 500 mg BID PO 11/21/16 21:00 12/05/16 20:59 UNV (Mely Anderson PA-C) Objective Vital Signs Date Time Temp Pulse Resp B/P (MAP) Pulse Ox O2 Delivery O2 Flow Rate FiO2 11/21/16 12:00 Room Air 11/21/16 11:29 36.6 63 20 125/92 (103) 96 Room Air 11/21/16 08:13 36.4 65 17 177/76 (109) 94 11/21/16 08:00 Room Air 11/21/16 08:00 94 Room Air 11/21/16 04:00 Room Air 11/21/16 04:00 36.8 66 16 155/75 (101) 91 Room Air 11/21/16 00:00 Room Air 11/20/16 23:50 36.9 72 16 120/59 (79) 96 Room Air 11/20/16 20:00 94 Room Air 11/20/16 16:00 97 Room Air 11/20/16 15:54 36.4 61 18 105/61 (76) 97 Room Air (Mely Anderson PA-C) Physical Exam General Appearance: WD/WN, no apparent distress Eyes: sclerae normal ENT: hearing grossly normal Neck: supple, no JVD, trachea midline Respiratory/Chest: lungs clear, normal breath sounds, no respiratory distress, no accessory muscle use Cardiovascular: regular rate, rhythm, no gallop, no murmur Abdomen: normal bowel sounds, non tender, soft Extremities: no pedal edema, no calf tenderness Neurologic/Psychiatric: alert Skin: normal color, warm/dry (Mely Anderson PA-C) Laboratory Results Last 24 Hours Test 11/20/16 16:27 11/20/16 20:42 11/21/16 07:54 11/21/16 08:26 Bedside Glucose 258 mg/dl 290 mg/dl 167 mg/dl White Blood Count 6.10 K/uL Red Blood Count 3.57 M/uL Hemoglobin 11.2 g/dL Hematocrit 32.8 % Mean Corpuscular Volume 91.9 fL Mean Corpuscular Hemoglobin 31.4 pg Mean Corpuscular Hemoglobin Concent 34.1 g/dl Platelet Count 80 K/uL Mean Platelet Volume 8.6 fL Neutrophils (%) (Auto) 79.1 % Lymphocytes (%) (Auto) 12.6 % Monocytes (%) (Auto) 6.7 % Eosinophils (%) (Auto) 1.1 % Basophils (%) (Auto) 0.2 % Neutrophils # (Auto) 4.82 K/uL Lymphocytes # (Auto) 0.77 K/uL Monocytes # (Auto) 0.41 K/uL Eosinophils # (Auto) 0.07 K/uL Basophils # (Auto) 0.01 K/uL RDW Standard Deviation 49.9 fL RDW Coefficient of Variation 14.6 % Immature Granulocyte % (Auto) 0.3 % Immature Granulocyte # (Auto) 0.02 K/uL Test 11/21/16 08:27 11/21/16 10:56 Sodium Level 146 mmol/L Potassium Level 4.3 mmol/L Chloride Level 118 mmol/L Carbon Dioxide Level 20 mmol/L Anion Gap 8.0 mmol/L Blood Urea Nitrogen 30 mg/dl Creatinine 1.70 mg/dl Est Creatinine Clear Calc Drug Dose 25.8 ml/min Estimated GFR () 31.8 Estimated GFR (Non- 27.4 BUN/Creatinine Ratio 17.5 Random Glucose 181 mg/dl Calcium Level 8.9 mg/dl Magnesium Level 2.3 mg/dl Bedside Glucose 256 mg/dl (Mely Anderson, PA-C) Assessment and Plan 81 y/o female with a history of Parkinson's disease, DM II, CKD stage III, HTN, HLD, bipolar disorder, dementia, thrombocytopenia with splenomegaly and GERD who presented to the ED on 11/19 with hyperglycemia, shaking, confusion and weakness. Patient febrile on arrival with temperature of 38C, vital signs otherwise stable. No leukocytosis. Random glucose 415. Beta hydroxybutyric acid within normal limits. Creatinine elevated above baseline at 1.8. Urinalysis positive for infection. [id number] lactic acid 3.31. Patient given a 500 mL fluid bolus, 6 units regular insulin, Tylenol and Primaxin in the ED. Sepsis 2/2 Pansensitive E. Coli UTI and Bacteremia: RESOLVING - Keflex 500 mg BID - DAY #3 - Switch to 1/2 NSS at 100 mL due to mildly elevate Na and Cl - Repeat BCx obtained and pending - patient has remained afebrile T2DM with Hyperglycemia: A1c 6.9 - Hold glipizide - Lantus 42 units SC HS and SSI JALEN on CKD stage III: Baseline Cr 1.6 - Cr improving and will monitor in BMP Chronic Thrombocytopenia S/P Splenomegaly: - Continue to monitor DVT Prophylaxis: [place]/SCDs; Avoid chemical prophylaxis due to thrombocytopenia Code Status: DO NOT RESUSCITATE Disposition: From home and states helps her; no ambulatory devices - PT/OT evaluations - recommendation for acute rehab vs SNF - Discussed with who reports he cannot take care of her adequately and requesting referral to [facility] - Patient is suitable for transfer to Med/Surg and when arrangements made she is medically suitable for D/C to SNF with oral antibiotic coverage Continued [facility] stay due to: home environment unsafe for pt Discharge planning: alf facility (Mely Anderson, JOSE) Reviewed: Pt Seen/Exam by Me (Aniyah Ruvalcaba DO) History Pt is feeling much improved. "I am reading again. I love to read." Tolerating PO without issue. Feels her mentation is improved. States she prefers to d/c to home, however family feels that she will need rehab prior to home. Agree with HPI/ROS as noted. (Aniyah Ruvalcaba, ) General Appearance: WD/WN, no apparent distress Respiratory: normal breath sounds, no respiratory distress Cardiovascular: normal peripheral pulses, regular rate, rhythm Gastrointestinal: non tender, soft Extremities: non-tender, no pedal edema Neurologic/Psychiatric: alert, normal mood/affect Skin Characteristics: normal color, warm/dry (Aniyah Ruvalcaba DO) Assessment/Plan Agree with plan as outlined above UTI with bacteremia, pansensitive Changed to PO abx, monitor Planning for rehab Cr is 1.7, baseline is around 1.6 (Aniyah Ruvalcaba DO)
[2016-11-21 15:58] VITALS: Ht 167.6 cm; Wt 74.1 kg
[2016-11-21 16:00] VITALS: O2SAT 94
[2016-11-21] MEDS: SERTRALINE HCL 100 MG TAB PO SCH (20:34)
[2016-11-21] MEDS: OLANZAPINE 10 MG TAB PO SCH (20:34)
[2016-11-21] MEDS: SIMVASTATIN 40 MG TAB PO SCH (20:34)
[2016-11-21] MEDS: CEPHALEXIN MONOHYDRATE 500 MG CAP PO SCH (20:34)
[2016-11-21] MEDS: INSULIN GLARGINE SOLOSTAR 100 UNITS/ML 3 ML PEN SC SCH (20:35)
[2016-11-22 06:06] LABS: MEAN CELL VOLUME 92.5 fL (80-100); MEAN CORPUSCULAR HEMOGLOBIN 31.3 pg (25-34); MEAN CORPUSCULAR HGB CONC 33.9 g/dl (32-36); RED BLOOD COUNT 3.35 M/uL (4.2-5.4); WHITE BLOOD COUNT 5.08 K/uL (4.8-10.8)
[2016-11-22 06:09] LABS: MEAN PLATELET VOLUME 8.3 fL (7.4-10.4); PLATELET COUNT 87 K/uL (130-400)
[2016-11-22] MEDS: SODIUM CHLORIDE 0.45% 1000ML 1,000 ML IV SCH (06:19)
[2016-11-22 06:28] LABS: BUN/CREATININE RATIO 16.1 (10-20); CALCIUM 9.3 mg/dl (8.5-10.1); CREATININE 1.7 mg/dl (0.60-1.20); POTASSIUM 4.5 mmol/L (3.5-5.1)
[2016-11-22 06:34] LABS: BASO % 0.2 %; BASO ABS # 0.01 K/uL (0-0.2); COMPLETE YES; EOS % 1.2 %; IG% 0.6 %; LYMPH % 17.3 %; LYMPH ABS # 0.88 K/uL (1.2-3.4); MONO % 7.3 %; NEUT % 73.4 %
[2016-11-22 07:26] VITALS: BP 145/75; PULSE 67; TEMP 37; O2SAT 96
[2016-11-22] MEDS: INSULIN ASPART 100 UNITS/ML 3 ML PEN SC SCH ×4 (08:55→20:57)
[2016-11-22] MEDS: TRIHEXYPHENIDYL HCL 2 MG TAB PO SCH ×3 (08:56→17:49)
[2016-11-22] MEDS: CEPHALEXIN MONOHYDRATE 500 MG CAP PO SCH ×2 (08:56→20:48)
[2016-11-22] MEDS: CARBIDOPA/LEVODOPA 50/200MG EXT REL TAB PO SCH ×3 (08:56→17:47)
[2016-11-22] MEDS: DONEPEZIL HCL 10 MG TAB PO SCH (08:56)
[2016-11-22] MEDS: CHOLECALCIFEROL 1000 INTER.UNIT TAB PO SCH (08:58)
--- NOTE | 2016-11-22 14:34 | Hospitalist Progress Note ---
Hospitalist Progress Note Date of Service Nov 22, 2016. (Mely Anderson PA-C) Subjective Pt evaluation today including: conversation w/ patient, physical exam, chart review, lab review, review of studies, review of inpatient medication list Patient seen and evaluated. No acute events overnight. Patient is tolerating Keflex and remains afebrile. Plan for 14 day course for bacteremia. Discussed acute rehab with patient who is still reporting returning home as well does not want [facility]. Per , he is unsure if he can take care of her without rehab and referral to [facility] placed. When discussing this topic patient really does not entertain the conversation. Kept stating that "I will do what I did before" stating she would take laps around the house for exercise. Also discussed walking devices and she states she doesn't need them and can hold on to things when walking and again states "that is my plan" Reports feeling well overall. She is in the right state of mind but does have some underlying dementia but appears she could make her own decision. Constitutional: No fever, No chills Respiratory: No shortness of breath Cardiovascular: No chest pain Abdomen: No pain, No nausea, No vomiting, No diarrhea, No constipation Female : No dysuria (Mely Anderson, MORAC) Medications Current Inpatient Medications Medications (Trade) Dose Ordered Sig/Mary Kay Route Start Time Stop Time Status Last Admin Dose Admin Acetaminophen (Tylenol Tab) 650 mg Q4H PRN PO 11/19/16 14:15 12/19/16 14:14 Al Hydrox/Mg Hydrox/Simethicone (Maalox Max Susp) 15 ml Q4H PRN PO 11/19/16 14:15 12/19/16 14:14 Magnesium Hydroxide (Milk Of Magnesia Susp) 30 ml Q12H PRN PO 11/19/16 14:15 12/19/16 14:14 Ondansetron HCl (Zofran Inj) 4 mg Q6H PRN IV 11/19/16 14:15 12/19/16 14:14 Polyethylene (Miralax Powder Packet) 17 gm DAILY PRN PO 11/19/16 14:15 12/19/16 14:14 Insulin Glargine (Lantus Solostar Pen) 42 units QPM SC 11/19/16 18:00 12/19/16 17:59 7/6/17 20:35 42 UNITS Glucose (Glucose 40% Gel) 15-30 GRAMS 15 GRAMS... UD PRN PO 11/19/16 14:15 12/19/16 14:14 Glucose (Glucose Chew Tab) 4-8 Tablets 4 Tabl... UD PRN PO 11/19/16 14:15 12/19/16 14:14 Dextrose (Dextrose 50% 50ML Syringe) 25-50ML OF 50% DW IV FOR... UD PRN IV 11/19/16 14:15 12/19/16 14:14 Glucagon (Glucagon Inj) 1 mg UD PRN SQ 11/19/16 14:15 12/19/16 14:14 Carbidopa/Levodopa (Sinemet Cr 50/ 200MG Tab) 1 tab TIDM PO 11/19/16 17:00 12/19/16 17:59 11/22/16 13:13 1 TAB Donepezil HCl (Aricept Tab) 10 mg DAILY PO 11/20/16 09:00 12/20/16 08:59 11/22/16 08:56 10 MG Lamotrigine (Lamictal Tab) 300 mg DAILY PO 11/20/16 09:00 12/20/16 08:59 11/22/16 08:57 300 MG Olanzapine (Zyprexa Tab) 10 mg HS PO 11/19/16 21:00 12/19/16 20:59 11/21/16 20:34 10 MG Sertraline HCl (Zoloft Tab) 150 mg HS PO 11/19/16 21:00 12/19/16 20:59 11/21/16 20:34 150 MG Simvastatin (Zocor Tab) 40 mg QPM PO 11/19/16 21:00 12/19/16 20:59 11/21/16 20:34 40 MG Trihexyphenidyl HCl (Artane Tab) 2 mg TIDM PO 11/19/16 17:00 12/19/16 17:59 11/22/16 13:13 2 MG Cholecalciferol (Vitamin D Tab) 2,000 inter.unit QAM PO 11/20/16 09:00 12/20/16 08:59 11/22/16 08:58 2,000 INTER.UNIT Insulin Aspart (novoLOG ASPART) SLIDING SCALE If C... ACHS SC 11/19/16 16:30 12/19/16 16:29 11/22/16 13:13 12 UNITS Sodium Chloride 1,000 ml @ 100 mls/hr Q10H IV 11/21/16 11:00 12/21/16 10:59 11/22/16 06:19 100 MLS/HR Cephalexin Monohydrate (Keflex Cap) 500 mg BID PO 11/21/16 21:00 12/05/16 20:59 11/22/16 08:56 500 MG (Mely Anderson PA-C) Objective Vital Signs Date Time Temp Pulse Resp B/P (MAP) Pulse Ox O2 Delivery O2 Flow Rate FiO2 11/22/16 08:15 Room Air 11/22/16 07:26 37.0 67 20 145/75 (98) 96 Room Air 11/22/16 00:00 Room Air 11/21/16 16:00 94 Room Air 11/21/16 16:00 Room Air 11/21/16 15:13 36.7 58 16 134/70 (91) 94 Room Air (Mely Anderson, MARYAN-C) Physical Exam General Appearance: WD/WN, no apparent distress Eyes: sclerae normal ENT: hearing grossly normal Neck: supple, no JVD, trachea midline Respiratory/Chest: lungs clear, normal breath sounds, no respiratory distress, no accessory muscle use Cardiovascular: regular rate, rhythm, no gallop, no murmur Abdomen: normal bowel sounds, non tender, soft Extremities: no pedal edema, no calf tenderness Neurologic/Psychiatric: alert, oriented x 3 Skin: normal color, warm/dry (Mely Anderson, MARYAN-C) Laboratory Results Last 24 Hours Test 11/21/16 16:35 11/21/16 20:20 11/22/16 05:30 11/22/16 07:24 Bedside Glucose 146 mg/dl 159 mg/dl 135 mg/dl White Blood Count 5.08 K/uL Red Blood Count 3.35 M/uL Hemoglobin 10.5 g/dL Hematocrit 31.0 % Mean Corpuscular Volume 92.5 fL Mean Corpuscular Hemoglobin 31.3 pg Mean Corpuscular Hemoglobin Concent 33.9 g/dl Platelet Count 87 K/uL Mean Platelet Volume 8.3 fL Neutrophils (%) (Auto) 73.4 % Lymphocytes (%) (Auto) 17.3 % Monocytes (%) (Auto) 7.3 % Eosinophils (%) (Auto) 1.2 % Basophils (%) (Auto) 0.2 % Neutrophils # (Auto) 3.73 K/uL Lymphocytes # (Auto) 0.88 K/uL Monocytes # (Auto) 0.37 K/uL Eosinophils # (Auto) 0.06 K/uL Basophils # (Auto) 0.01 K/uL RDW Standard Deviation 48.6 fL RDW Coefficient of Variation 14.3 % Immature Granulocyte % (Auto) 0.6 % Immature Granulocyte # (Auto) 0.03 K/uL Sodium Level 144 mmol/L Potassium Level 4.5 mmol/L Chloride Level 115 mmol/L Carbon Dioxide Level 22 mmol/L Anion Gap 7.0 mmol/L Blood Urea Nitrogen 27 mg/dl Creatinine 1.70 mg/dl Est Creatinine Clear Calc Drug Dose 25.8 ml/min Estimated GFR () 31.8 Estimated GFR (Non- 27.4 BUN/Creatinine Ratio 16.1 Random Glucose 123 mg/dl Calcium Level 9.3 mg/dl Test 11/22/16 11:28 Bedside Glucose 267 mg/dl (Mely Anderson, MORAC) Assessment and Plan 81 y/o female with a history of Parkinson's disease, DM II, CKD stage III, HTN, HLD, bipolar disorder, dementia, thrombocytopenia with splenomegaly and GERD who presented to the ED on 11/19 with hyperglycemia, shaking, confusion and weakness. Patient febrile on arrival with temperature of 38C, vital signs otherwise stable. No leukocytosis. Random glucose 415. Beta hydroxybutyric acid within normal limits. Creatinine elevated above baseline at 1.8. Urinalysis positive for infection. [id number] lactic acid 3.31. Patient given a 500 mL fluid bolus, 6 units regular insulin, Tylenol and Primaxin in the ED. Sepsis 2/2 Pansensitive E. Coli UTI and Bacteremia: RESOLVING - Keflex 500 mg BID - DAY #08/30 - Repeat BCx obtained and pending - patient has remained afebrile T2DM with Hyperglycemia: A1c 6.9 - Hold glipizide - Lantus 42 units SC HS and SSI JALEN on CKD stage III: Baseline Cr 1.6 - Cr improving and will monitor in BMP Chronic Thrombocytopenia S/P Splenomegaly: STABLE - Continue to monitor DVT Prophylaxis: [place]/SCDs; Avoid chemical prophylaxis due to thrombocytopenia Code Status: DO NOT RESUSCITATE Disposition: From home and states helps her; no ambulatory devices - PT/OT evaluations - recommendation for acute rehab vs SNF - Discussed with who reports he cannot take care of her adequately and requesting referral to [facility] - Patient is medically suitable for D/C to SNF with oral antibiotic coverage Continued [facility] stay due to: home environment unsafe for pt [facility] [place] [facility] (Mely Anderson, PAMeghaC) Reviewed: Pt Seen/Exam by Me (Aniyah Ruvalcaba, ) History Pt continues to feel improved. She is reluctant to go to rehab prior to home, but does not feel he can manage her in her current state. She is agreeable to this after discussion with him. Tolerating PO. Agree with HPI/ROS as noted. (Aniyah Ruvalcaba DO) General Appearance: WD/WN, no apparent distress Ears, Nose, Throat: hearing grossly normal Neck: supple Respiratory: normal breath sounds, no respiratory distress Cardiovascular: normal peripheral pulses, regular rate, rhythm Gastrointestinal: non tender, soft Extremities: non-tender, no pedal edema Neurologic/Psychiatric: alert, normal mood/affect, oriented x 3, other ( conversation is pleasant, answers are appropriate although does repeat things at times) Skin Characteristics: normal color, warm/dry (Aniyah Ruvalcaba DO) Assessment/Plan Agree with plan as outlined above UTI with bacteremia, pansensitive Changed to PO abx, monitor Planning for rehab, awaiting bed availability Cr is 1.7, baseline is around 1.6 (Aniyah Ruvalcaba, )
[2016-11-22 15:13] VITALS: BP 162/88; PULSE 64; TEMP 36.8; O2SAT 93
[2016-11-22 16:00] VITALS: O2SAT 93
[2016-11-22] MEDS: SIMVASTATIN 40 MG TAB PO SCH (20:49)
[2016-11-22] MEDS: OLANZAPINE 10 MG TAB PO SCH (20:52)
[2016-11-22] MEDS: SERTRALINE HCL 100 MG TAB PO SCH (20:52)
[2016-11-22] MEDS: INSULIN GLARGINE SOLOSTAR 100 UNITS/ML 3 ML PEN SC SCH (20:57)
[2016-11-22 23:37] VITALS: BP 143/64; PULSE 71; TEMP 36.9; O2SAT 94
[2016-11-23 06:18] LABS: HEMATOCRIT 31.9 % (37-47); MEAN CELL VOLUME 93.8 fL (80-100); MEAN CORPUSCULAR HEMOGLOBIN 30.3 pg (25-34); MEAN CORPUSCULAR HGB CONC 32.3 g/dl (32-36); WHITE BLOOD COUNT 4.33 K/uL (4.8-10.8)
[2016-11-23 06:20] LABS: PLATELET COUNT 92 K/uL (130-400)
[2016-11-23 06:47] LABS: BUN/CREATININE RATIO 17.2 (10-20); CALCIUM 9.2 mg/dl (8.5-10.1); CREATININE 1.8 mg/dl (0.60-1.20); POTASSIUM 4.7 mmol/L (3.5-5.1)
[2016-11-23 07:24] VITALS: BP_SYST 178; BP_SYST 182; BP_DIAS 107; BP_DIAS 75; PULSE 61; TEMP 36.7; O2SAT 94
[2016-11-23 08:43] VITALS: BP 134/66; PULSE 76
[2016-11-23] MEDS: DONEPEZIL HCL 10 MG TAB PO SCH (08:45)
[2016-11-23] MEDS: CARBIDOPA/LEVODOPA 50/200MG EXT REL TAB PO SCH ×2 (08:45→12:19)
[2016-11-23] MEDS: CEPHALEXIN MONOHYDRATE 500 MG CAP PO SCH (08:46)
[2016-11-23] MEDS: CHOLECALCIFEROL 1000 INTER.UNIT TAB PO SCH (08:46)
[2016-11-23] MEDS: TRIHEXYPHENIDYL HCL 2 MG TAB PO SCH ×2 (08:46→12:19)
[2016-11-23] MEDS: INSULIN ASPART 100 UNITS/ML 3 ML PEN SC SCH ×2 (08:53→12:27)
[2016-11-23] MEDS ORDERED: KFL500 PO (14:26)
--- NOTE | 2016-11-23 14:28 | Discharge Instructions ---
Discharge Instructions Date of Service Nov 23, 2016. Admission Reason for Admission: Hyperglycemia, Urinary Tract Infection Discharge Discharge Diagnosis / Problem: UTI, bacteremia Discharge Goals Goal(s): Decrease discomfort, Improve function, Increase independence Activity Recommendations Activity Level: Assistance Required Therapies: Physical Therapy, Occupational Therapy . Additional Information Patient informed of condition: Yes Advance Directives: Yes DNR: Yes Level of Care: Acute Rehab Communicable Disease: No Prognosis: Improving Mac Catheter: No Instructions / Follow-Up Instructions / Follow-Up Dr. Mckoy in 3-5 days Current Hospital Diet Patient's current hospital diet: Diabetes Type 2 Diet Discharge Diet Recommended Diet: Diabetes Type 2 Diet Pending Studies Studies pending at discharge: no Laboratory Results Hemoglobin A1c Test 09/09/16 08:24 Range/Units Estimated Average Glucose 151 mg/dl Hemoglobin A1c 6.9 H 4.5-5.6 % Medical Emergencies . Who to Call and When: Medical Emergencies: If at any time you feel your situation is an emergency, please call 911 immediately. . Non-Emergent Contact Non-Emergency issues call your: Primary Care Provider . . "Provider Documentation" section prepared by Aniyah Ruvalcaba. . Core Measure Problem Core Measures: None
--- NOTE | 2016-11-23 14:36 | Discharge Summary ---
Discharge Summary Date of Service Nov 23, 2016. Discharge Summary Admission Date: Nov 19, 2016 at 14:25 Discharge Date: Nov 23, 2016 Discharge Disposition: Rehab Principal Diagnosis: UTI, bacteremia Problems/Secondary Diagnoses: Parkinson's with tremor DM CKD III, baseline cr 1.6-1.7 HTN Hyperlipidemia Bipolar Dementia GERD Thrombocytopenia with splenomegaly Immunizations: Have You Had Influenza Vaccine: Yes Influenza Vaccine Date: Apr 02, 2005 History of Tetanus Vaccine?: PT STATES LAST TETANUS OVER 10 YRS AGO History of Pneumococcal: No History of Hepatitis B Vaccine: No Medication Reconciliation New Medications: Cephalexin Monohydrate (Cephalexin) 500 Mg Cap 500 MG PO BID for 10 Days, #20 CAP Continued Medications: Carbidopa/Levodopa (Sinemet Cr 50MG/200MG) Tabcr 1 TAB PO TIDM, TAB Cholecalciferol (Vitamin D) 2,000 Unit Cap 2000 UNITS PO DAILY Donepezil Hydrochloride (Aricept) 10 Mg Tab 10 MG PO DAILY, TAB Glipizide (Glucotrol) 5 Mg Tab 2.5 MG PO BID, TAB Insulin Glargine (Lantus Solostar) 100 Unit/Ml Inj 0 SC UD, PEN 42 UNITS FOR BSG >180 40 UNITS FOR BSG <180 Lamotrigine (Lamictal) 150 Mg Tab 300 MG PO DAILY, TAB Olanzapine (Zyprexa) 10 Mg Tab 1 TAB PO HS for 30 Days, #30 TAB 2 Refills Sertraline (Zoloft) 100 Mg Tab 150 MG PO HS, TAB Simvastatin (Zocor) 40 Mg Tab 40 MG PO QPM, TAB Trihexyphenidyl Hcl (Artane) 2 Mg Tab 2 MG PO TIDM, TAB Discharge Exam Pt is doing quite well. She has been ambulating with assistance. Tolerating PO without issue. Pt denies fever, SOB, chest pain, abd pain, n/v/c/d, LE pain or swelling. ROS reviewed and otherwise neg Physical Exam: General Appearance: WD/WN, no apparent distress Respiratory/Chest: normal breath sounds, no respiratory distress Cardiovascular: regular rate, rhythm, no edema Abdomen / GI: non tender, soft Extremities: no calf tenderness, no pedal edema Neurologic/Psychiatric: alert, normal reflexes, oriented x 3 Skin: normal color, warm/dry Hospital Course 81 y/o female with a history of Parkinson's disease, DM II, CKD stage III, HTN, HLD, bipolar disorder, dementia, thrombocytopenia with splenomegaly and GERD who presented to the ED on 11/19 with hyperglycemia, shaking, confusion and weakness. Patient febrile on arrival with temperature of 38C, vital signs otherwise stable. No leukocytosis. Random glucose 415. Beta hydroxybutyric acid within normal limits. Creatinine elevated above baseline at 1.8. Urinalysis positive for infection. [id number] lactic acid 3.31. Patient given a 500 mL fluid bolus, 6 units regular insulin, Tylenol and Primaxin in the ED. Sepsis 2/2 Pansensitive E. Coli UTI and Bacteremia: RESOLVING - Keflex 500 mg BID Complete 14 day total course as outpt - Urine and initial blood cx + for ecoli, with repeat blood cx neg T2DM with Hyperglycemia: A1c 6.9 - Hold glipizide - Lantus 42 units SC HS and SSI JALEN on CKD stage III: Baseline Cr 1.6-1.7 - Cr at baseline 1.7 on d/c Chronic Thrombocytopenia S/P Splenomegaly: STABLE - Continue to monitor Bipolar/Parkinson's with dementia: Stable Pt has had no issues from a psych standpoint other than she does repeat herself at times and mild short term memory issues DVT Prophylaxis: [place]/SCDs; Avoid chemical prophylaxis due to thrombocytopenia Code Status: DO NOT RESUSCITATE Total Time Spent: Greater than 30 minutes This includes examination of the patient, discharge planning, medication reconciliation, and communication with other providers. Discharge Instructions Please refer to the electronic Patient Visit Report (Discharge Instructions) for additional information. Follow-Up Dr. Mckoy in 3-5 days Additional Copies To Annie Ellis; Gordo Mckoy M.D.
[2016-11-23 14:46] VITALS: BP 134/66; PULSE 76; TEMP 36.7; O2SAT 94
[2016-11-23 15:20] VITALS: BP 161/71; TEMP 36.5; O2SAT 96
== END 2016-11-23 16:37 | DRG 872 ==
LOC: C.EDB 11:27 → C.MED 14:25 → ENRESERV 15:28
PROVIDERS: ADMIT Hospitalist; ATTEND Family Medicine
DX: A41.51 Sepsis due to Escherichia coli [E. coli] (principal); N39.0 Urinary tract infection, site not specified; N17.9 Acute kidney failure, unspecified; Z66 Do not resuscitate; G20 Parkinson's disease; N18.3 Chronic kidney disease, stage 3 (moderate); D69.6 Thrombocytopenia, unspecified; D64.9 Anemia, unspecified; E11.65 Type 2 diabetes mellitus with hyperglycemia; F31.9 Bipolar disorder, unspecified; K21.9 Gastro-esophageal reflux disease without esophagitis; Z79.4 Long term (current) use of insulin

== ENCOUNTER → 2017-07-25 | Outpatient (CLI) | payer OTHER, MEDICARE ==
[~2017-07-25] MED LIST changes: +LAMO150T PO; -LAMO150T32 PO
[2017-07-25 09:16] LABS: HEMOGLOBIN A1C 6.9 % (4.5-5.6)
== END ==
LOC: C.LABCC 07:58
PROVIDERS: ATTEND Internal Medicine
DX: E11.9 Type 2 diabetes mellitus without complications (principal)

== ENCOUNTER → 2017-08-25 | Outpatient (CLI) | payer OTHER, MEDICARE ==
[2017-08-25 10:11] LABS: BLOOD UREA NITROGEN 28 mg/dl (7-18); CALCIUM 9.6 mg/dl (8.5-10.1); CARBON DIOXIDE 24 mmol/L (21-32); CREATININE 1.53 mg/dl (0.60-1.20); GLUCOSE 200 mg/dl (70-99); POTASSIUM 4.5 mmol/L (3.5-5.1); SODIUM 139 mmol/L (136-145)
== END ==
LOC: C.LABCC 09:21
PROVIDERS: ATTEND Internal Medicine
DX: N13.8 Other obstructive and reflux uropathy (principal)